=== PATIENT | female | born 2000 | race American Indian/Alaskan Native ===

== ENCOUNTER 2021-05-30 06:45 | Emergency (ER) | payer OTHER ==
--- NOTE | 2021-05-30 10:23 | Emergency Department Report ---
ED General Adult HPI - General Chief complaint: Weakness Stated complaint: LOSS OF APPETITE/WEAKNESS Time Seen by Provider: 05/30/21 10:21 Source: patient Mode of arrival: Wheelchair Limitations: No Limitations - History of Present Illness Initial comments: Patient is a 21-year-old female presents emergency room complaints of nausea, vomiting, diarrhea that began 2 days ago. She states that she did have a positive Covid contact but has not yet been tested in the last few days since becoming sick. She has not been vaccinated for COVID-19. She denies any fever, cough, shortness of breath, chest pain, abdominal pain. She states that she is also currently on her menstrual cycle. Patient has a past medical history of anxiety and depression but denies any SI or HI. she states that she is currently on her menstrual cycle. - Related Data Previous Rx's Medication Instructions Recorded Last Taken Type Hyoscyamine Subl [Levsin Sl 0.125 0.125 mg SL Q6HR PRN #10 tab 05/30/21 Unknown Rx TAB] Ondansetron [Zofran Odt] 4 mg PO Q8HR PRN #10 tab.rapdis 05/30/21 Unknown Rx cephALEXin [Keflex] 500 mg PO BID 7 Days #14 capsule 05/30/21 Unknown Rx Allergies Allergy/AdvReac Type Severity Reaction Status Date / Time No Known Allergies Allergy Unverified 05/30/21 12:39 ED Review of Systems ROS: Stated complaint: LOSS OF APPETITE/WEAKNESS Other details as noted in HPI Comment: All other systems reviewed and negative ED Past Medical Hx - Past Medical History Previous Medical History?: Yes Hx Psychiatric Treatment: Yes (depression) - Surgical History Past Surgical History?: No Additional Surgical History: denies - Social History Smoking Status: Never Smoker Substance Use Type: None - Medications Home Medications: Home Medications Medication Instructions Recorded Confirmed Last Taken Type Hyoscyamine Subl [Levsin Sl 0.125 0.125 mg SL Q6HR PRN #10 tab 05/30/21 Unknown Rx TAB] Ondansetron [Zofran Odt] 4 mg PO Q8HR PRN #10 tab.rapdis 05/30/21 Unknown Rx cephALEXin [Keflex] 500 mg PO BID 7 Days #14 capsule 05/30/21 Unknown Rx ED Physical Exam - General Limitations: No Limitations General appearance: alert, in no apparent distress - Head Head exam: Present: atraumatic, normocephalic - Eye Eye exam: Present: normal appearance - ENT ENT exam: Present: mucous membranes moist - Respiratory Respiratory exam: Present: normal lung sounds bilaterally. Absent: respiratory distress, wheezes, rales, rhonchi, stridor, chest wall tenderness, accessory mus fifi use, decreased breath sounds, prolonged expiratory - Cardiovascular Cardiovascular Exam: Present: regular rate, normal rhythm, normal heart sounds. Absent: systolic murmur, diastolic murmur, rubs, gallop - GI/Abdominal GI/Abdominal exam: Present: soft, normal bowel sounds. Absent: distended, tenderness, guarding, rebound, rigid - Neurological Exam Neurological exam: Present: alert, oriented X3 - Psychiatric Psychiatric exam: Present: normal affect, normal mood - Skin Skin exam: Present: warm, dry, intact ED Course Vital Signs 05/30/21 14:35 Temperature 98.9 F Pulse Rate 87 Respiratory 16 Rate Blood Pressure 111/74 [Left] O2 Sat by Pulse 98 Oximetry ED Medical Decision Making - Lab Data Result diagrams: 05/30/21 11:47 05/30/21 11:47 Lab Results 05/30/21 05/30/21 05/30/21 Range/Units 08:18 11:47 11:47 WBC 4.9 (4.5-11.0) K/mm3 RBC 4.70 (3.65-5.03) M/mm3 Hgb 13.9 (10.1-14.3) gm/dl Hct 41.8 (30.3-42.9) % MCV 89 (79-97) fl MCH 30 (28-32) pg MCHC 33 (30-34) % RDW 12.7 L (13.2-15.2) % Plt Count 254 (140-440) K/mm3 Lymph % (Auto) 30.0 (13.4-35.0) % Sab[place] % (Auto) 6.9 (0.0-7.3) % Eos % (Auto) 0.1 (0.0-4.3) % Baso % (Auto) 0.3 (0.0-1.8) % Lymph # (Auto) 1.5 (1.2-5.4) K/mm3 Sabine # (Auto) 0.3 (0.0-0.8) K/mm3 Eos # (Auto) 0.0 (0.0-0.4) K/mm3 Baso # (Auto) 0.0 (0.0-0.1) K/mm3 Seg Neutrophils % 62.7 (40.0-70.0) % Seg Neutrophils # 3.1 (1.8-7.7) K/mm3 Sodium 138 (137-145) mmol/L Potassium 3.9 (3.6-5.0) mmol/L Chloride 105.3 (98-107) mmol/L Carbon Dioxide 20 L (22-30) mmol/L Anion Gap 17 mmol/L BUN 8 (7-17) mg/dL Creatinine 0.5 L (0.6-1.2) mg/dL Estimated GFR > 60 ml/min BUN/Creatinine Ratio 16 % Glucose 103 H (65-100) mg/dL POC Glucose 90 (70-105) mg/dL Calcium 9.9 (8.4-10.2) mg/dL Total Bilirubin 0.40 (0.1-1.2) mg/dL AST 18 (5-40) units/L ALT 15 (7-56) units/L Alkaline Phosphatase 43 (35-129) units/L Total Protein 8.0 (6.3-8.2) g/dL Albumin 4.6 (3.9-5) g/dL Albumin/Globulin Ratio 1.4 % Lipase 21 (13-60) units/L HCG, Qual (Negative) Urine Color (Yellow) Urine Turbidity (Clear) Urine pH Ur Specific [place] (1.003-1.030) Urine Protein (Negative) mg/dL Urine Glucose (UA) (Negative) mg/dL Urine Ketones (Negative) mg/dL Urine Blood (Negative) Urine Nitrite (Negative) Urine Bilirubin (Negative) Urine Urobilinogen Ur Leukocyte Esterase (Negative) Urine WBC (Auto) (0.0-6.0) /HPF Urine RBC (Auto) (0.0-6.0) /HPF U Epithel Cells (Auto) (0-13.0) /HPF Urine Mucus /HPF 05/30/21 05/30/21 Range/Units 11:47 Unknown WBC (4.5-11.0) K/mm3 RBC (3.65-5.03) M/mm3 Hgb (10.1-14.3) gm/dl Hct (30.3-42.9) % MCV (79-97) fl MCH (28-32) pg MCHC (30-34) % RDW (13.2-15.2) % Plt Count (140-440) K/mm3 Lymph % (Auto) (13.4-35.0) % Sabine % (Auto) (0.0-7.3) % Eos % (Auto) (0.0-4.3) % Baso % (Auto) (0.0-1.8) % Lymph # (Auto) (1.2-5.4) K/mm3 Sabine # (Auto) (0.0-0.8) K/mm3 Eos # (Auto) (0.0-0.4) K/mm3 Baso # (Auto) (0.0-0.1) K/mm3 Seg Neutrophils % (40.0-70.0) % Seg Neutrophils # (1.8-7.7) K/mm3 Sodium (137-145) mmol/L Potassium (3.6-5.0) mmol/L Chloride (98-107) mmol/L Carbon Dioxide (22-30) mmol/L Anion Gap mmol/L BUN (7-17) mg/dL Creatinine (0.6-1.2) mg/dL Estimated GFR ml/min BUN/Creatinine Ratio % Glucose (65-100) mg/dL POC Glucose (70-105) mg/dL Calcium (8.4-10.2) mg/dL Total Bilirubin (0.1-1.2) mg/dL AST (5-40) units/L ALT (7-56) units/L Alkaline Phosphatase (35-129) units/L Total Protein (6.3-8.2) g/dL Albumin (3.9-5) g/dL Albumin/Globulin Ratio % Lipase (13-60) units/L HCG, Qual Negative (Negative) Urine Color Red (Yellow) Urine Turbidity Turbid (Clear) Urine pH TNR Ur Specific [place] 1.035 H (1.003-1.030) Urine Protein Color interference (Negative) mg/dL Urine Glucose (UA) Color interference (Negative) mg/dL Urine Ketones Color interference (Negative) mg/dL Urine Blood Color interference (Negative) Urine Nitrite Color interference (Negative) Urine Bilirubin Color interference (Negative) Urine Urobilinogen TNR Ur Leukocyte Esterase Color interference (Negative) Urine WBC (Auto) 129.0 H (0.0-6.0) /HPF Urine RBC (Auto) > 182.0 (0.0-6.0) /HPF U Epithel Cells (Auto) 9.0 (0-13.0) /HPF Urine Mucus 3+ /HPF - Medical Decision Making Patient is a 21-year-old female presents emergency room complaints of nausea, vomiting, diarrhea that began 2 days ago. She states that she did have a positive Covid contact but has not yet been tested in the last few days since becoming sick. She has not been vaccinated for COVID-19. She denies any fever, cough, shortness of breath, chest pain, abdominal pain. She states that she is also currently on her menstrual cycle. Patient has a past medical history of anxiety and depression but denies any SI or HI. she states that she is currently on her menstrual cycle. Vitals are normal. No abnormality on physical examination as documented in chart. Labs are stable. UA shows evidence of red blood cells and white blood cells, could be due to UTI versus contamination from blood due to her menstrual cycle. Will cover patient with Keflex. Patient given medications while in the emergency department and symptoms improved and she was feeling much better and ready to go home. She was able to tolerate p.o. intake with no difficulty. Advised patient Take medication as prescribed. Increase your fluid intake. Eat a bland liquid diet and slowly advance diet as tolerated. Follow-up with your primary care doctor. Return to emergency room for any new or worsening symptoms. Recommend for you to get outpatient COVID-19 testing and if positive self quarantine for 10 days from onset of symptoms. Critical care attestation.: If time is entered above; I have spent that time in minutes in the direct care of this critically ill patient, excluding procedure time. ED Disposition Clinical Impression: Nausea vomiting and diarrhea UTI (urinary tract infection) Qualifiers: Urinary tract infection type: acute cystitis Hematuria presence: without hematuria Qualified Code(s): N30.00 - Acute cystitis without hematuria Disposition: HOME / SELF CARE / HOMELESS Is pt being admited?: No Does the pt Need Aspirin: No Condition: Stable Instructions: Viral Gastroenteritis, Adult, Urinary Tract Infection, Adult Additional Instructions: Take medication as prescribed. Increase your fluid intake. Eat a bland liquid diet and slowly advance diet as tolerated. Follow-up with your primary care doctor. Return to emergency room for any new or worsening symptoms. Recommend for you to get outpatient COVID-19 testing and if positive self quarantine for 10 days from onset of symptoms. Prescriptions: cephALEXin [Keflex] 500 mg PO BID 7 Days #14 capsule Hyoscyamine Subl [Levsin Sl 0.125 TAB] 0.125 mg SL Q6HR PRN #10 tab PRN Reason: diarrhea Ondansetron [Zofran Odt] 4 mg PO Q8HR PRN #10 tab.rapdis PRN Reason: vomiting Referrals: PRIMARY CARE, [Primary Care Provider] - 2-3 Days Time of Disposition: 14:02 Print Language: HEBREW
[2021-05-30 12:01] LABS: Bilirubin,Urine Color Interference (Negative); Color,Urine Red (Yellow)
[2021-05-30 12:02] LABS: Blood,Urine Color Interference (Negative); PH,Urine TNR (5.0-7.0); Protein,Urine Color Interference mg/dL (Negative); Urobilinogen,Urine TNR mg/dL (<2.0)
[2021-05-30 12:03] LABS: Mucus,Urine 3+ /HPF
[2021-05-30 12:05] LABS: RBC,Urine > 182.0 /HPF (0.0-6.0)
[2021-05-30 12:34] LABS: Alanine Aminotransferase 15 units/L (7-56); Albumin 4.6 g/dL (3.9-5); Basophils % (Auto) 0.3 % (0.0-1.8); Blood Urea Nitrogen 8 mg/dL (7-17); Calcium 9.9 mg/dL (8.4-10.2); Eosinophils % (Auto) 0.1 % (0.0-4.3); Hematocrit 41.8 % (30.3-42.9); Hemoglobin 13.9 gm/dl (10.1-14.3); Hemolysis Index 3; Lymphocytes # (Auto) 1.5 K/mm3 (1.2-5.4); Mean Corpuscular HGB Conc 33 % (30-34); Mean Corpuscular Volume 89 fl (79-97); Monocytes # (Auto) 0.3 K/mm3 (0.0-0.8); Monocytes % (Auto) 6.9 % (0.0-7.3); Platelet Count 254 K/mm3 (140-440); Red Cell Distribution Width 12.7 % (13.2-15.2)
[2021-05-30 12:51] LABS: BUN/Creatinine Ratio 16
[2021-05-30] MEDS ORDERED: HYOSCYAMINE SUBL 0.125 MG TAB SL ONE (13:00)
[2021-05-30] MEDS ORDERED: ONDANSETRON 4 MG ODT TAB PO ONE (13:00)
[2021-05-30 14:36] VITALS: BP 111/74
== END 2021-05-30 14:36 | disposition home or self-care (01) ==
LOC: ED 06:45
DX: N39.0 Urinary tract infection, site not specified (principal); R11.2 Nausea with vomiting, unspecified; R19.7 Diarrhea, unspecified; F32.9 Major depressive disorder, single episode, unspecified
CPT/HCPCS: 36415; 80053; 81001; 82962; 83690; 84703; 85025; 87086; 99284; Q0162

== ENCOUNTER 2021-05-31 07:37 | Emergency (ER) | payer OTHER ==
[2021-05-31] MEDS ORDERED: SODIUM CHLORIDE 0.9% 1000 ML 1,000 ML IV ONE (08:11)
[2021-05-31] MEDS ORDERED: ONDANSETRON 4 MG/2 ML INJ IV ONE (08:11)
--- NOTE | 2021-05-31 08:19 | Emergency Department Report ---
ED Psych HPI - General Chief Complaint: Overdose Stated Complaint: SI Time Seen by Provider: 05/31/21 08:08 Source: patient Mode of arrival: Ambulatory - History of Present Illness Initial Comments: CC: "I am having a mental health crisis." HPI: This is a 21-year-old female with history of anxiety and depression who presents after suicide attempt. Patient intentionally ingested 700mg sertraline. She immediately called 911 after the ingestion. She stated that she did not want her son to find her body. She had a previous suicide attempt as a teenager. She has had multiple social stressors including strained relationship with the father of her child. 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 They had previously lived together for several years. Patient states that mothering during quarantine has been has been difficult. She is staying home with her child while being away from work. 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 Tearfully she explains, "no one is going to take care of me to except for me I am not doing a good job of it." She spoke with her mother today. She does not have a good relationship with her mother. Recently she has had nausea vomiting diarrhea since Saturday. She is evaluated in emergency department yesterday for the symptoms. She has had contact with known COVID-19 infected persons. She is not vaccinated against COVID-19. Complaint: suicidal ideation, feels depressed, other (Intentional drug overdose) -: This morning Associated Psychiatric Symptoms: depression, suicidal ideation History of same: Yes Quality: constant Improves With: none Worsens With: none Context: significant life stressor Associated Symptoms: vomiting, other If Self Harm: intentional overdose - Related Data Previous Rx's Medication Instructions Recorded Last Taken Type Hyoscyamine Subl [Levsin Sl 0.125 0.125 mg SL Q6HR PRN #10 tab 05/30/21 Unknown Rx TAB] Ondansetron [Zofran Odt] 4 mg PO Q8HR PRN #10 tab.rapdis 05/30/21 Unknown Rx cephALEXin [Keflex] 500 mg PO BID 7 Days #14 capsule 05/30/21 Unknown Rx Allergies Allergy/AdvReac Type Severity Reaction Status Date / Time No Known Allergies Allergy Unverified 05/30/21 12:39 ED Review of Systems ROS: Stated complaint: SI Other details as noted in HPI Comment: All other systems reviewed and negative Constitutional: denies: fever, malaise Respiratory: denies: cough, shortness of breath Gastrointestinal: nausea, vomiting, diarrhea Musculoskeletal: denies: back pain Psychiatric: depression, suicidal thoughts ED Past Medical Hx - Past Medical History Previous Medical History?: Yes Hx Psychiatric Treatment: Yes (depression, anxiety) - Surgical History Past Surgical History?: No Additional Surgical History: denies - Social History Smoking Status: Never Smoker Substance Use Type: None - Medications Home Medications: Home Medications Medication Instructions Recorded Confirmed Last Taken Type Hyoscyamine Subl [Levsin Sl 0.125 0.125 mg SL Q6HR PRN #10 tab 05/30/21 Unknown Rx TAB] Ondansetron [Zofran Odt] 4 mg PO Q8HR PRN #10 tab.rapdis 05/30/21 Unknown Rx cephALEXin [Keflex] 500 mg PO BID 7 Days #14 capsule 05/30/21 Unknown Rx ED Physical Exam - General Limitations: No Limitations General appearance: alert, in no apparent distress, other (Tearful obviously upset poor eye contact cooperative fairly insightful) - Head Head exam: Present: atraumatic, normocephalic - Eye Eye exam: Present: normal appearance - ENT ENT exam: Present: mucous membranes moist - Neck Neck exam: Present: normal inspection - Respiratory Respiratory exam: Present: normal lung sounds bilaterally. Absent: respiratory distress - Cardiovascular Cardiovascular Exam: Present: regular rate, normal rhythm. Absent: systolic murmur, diastolic murmur, rubs, gallop - GI/Abdominal GI/Abdominal exam: Present: soft, normal bowel sounds. Absent: distended, tenderness - Extremities Exam Extremities exam: Present: normal inspection - Back Exam Back exam: Present: normal inspection - Neurological Exam Neurological exam: Present: alert, oriented X3 - Psychiatric Psychiatric exam: Present: normal affect, depressed - Skin Skin exam: Present: warm, dry, intact, normal color. Absent: rash ED Course Vital Signs 05/31/21 05/31/21 05/31/21 07:55 14:56 16:40 Temperature 98 F Pulse Rate 111 H 77 82 Respiratory 16 16 16 Rate Blood Pressure 129/84 Blood Pressure 109/56 98/40 [Right] O2 Sat by Pulse 100 97 98 Oximetry 05/31/21 05/31/21 05/31/21 16:41 17:27 19:23 Temperature 97.8 F 98.1 F Pulse Rate 67 84 Respiratory 20 18 Rate Blood Pressure Blood Pressure 110/55 107/52 [Right] O2 Sat by Pulse 98 98 98 Oximetry - Reevaluation(s) Reevaluation #1: 05/31/21 13:40 Patient observed for 6 hours on monitor. No major adverse cardiac events. No indication of cardiovascular stability. Patient is medically clear for psychiatric care. ED Medical Decision Making - Lab Data Result diagrams: 05/31/21 08:30 05/31/21 08:30 - Medical Decision Making 1. Intentional overdose of 700 mg of sertraline: I consulted [place] poison control center specialist. According to discussion with [facility] toxicology specialist, this is a nonlethal ingestion. Lethal effects are seen at 40 mg/kg which is markedly above patient's small ingested amount. Peak effect is expected between 6 to 8 hours. Will observe for seizure activity which is not likely at this amount of ingestion. GI distress vomiting diarrhea is to be expected.1013 form completed. ED hold order in place. I examined the bottle of sertraline which accompanied the patient. Quantity on the label 90 tablets. The majority of the tablets are contained in the pill bottle. Pill bottle containing sertraline is mostly full. 2. vomiting diarrhea since Saturday: COVID-19 test ordered, influenza, food poisoning other consideration, test negative, patient received symptomatic treatment with IV fluid therapy IV Zofran After appropriate observation 6 hours on cardiac nurse specialist, patient is medically clear for psychiatric care [facility] Critical Care Time: Yes Critical care time in (mins) excluding proc time.: 40 Critical care attestation.: If time is entered above; I have spent that time in minutes in the direct care of this critically ill patient, excluding procedure time. 40 minutes of critical care time excluding procedures were used in the care of the patient. Jenny alongside steam turbine assembler while obtaining EMS report over the radio. I came immediately to the bedside upon patient's arrival. I obtained history from EMS at the bedside. I discussed treatment plan with the nursing team members. I reviewed electronic record. I spoke with toxicology compliance consultant. Patient required multiple interventions and reassessments. I was concerned for impending cardiovascular collapse. Was concerned that patient may have ingested other potentially lethal medications. ED Disposition Clinical Impression: Intentional overdose of drug in tablet form, Suicide attempt, Acute depression Disposition: [address] [place] [address] Is pt being admited?: No Does the pt Need Aspirin: No Condition: Stable Referrals: PRIMARY CARE, [Primary Care Provider] - 3-5 Days
[2021-05-31 09:07] LABS: Basophils % (Auto) 0.3 % (0.0-1.8); Hematocrit 41.1 % (30.3-42.9); Hemoglobin 13.7 gm/dl (10.1-14.3); Lymphocytes # (Auto) 0.8 K/mm3 (1.2-5.4); Lymphocytes % (Auto) 18.6 % (13.4-35.0); Mean Corpuscular HGB Conc 33 % (30-34); Mean Corpuscular Volume 89 fl (79-97); Monocytes # (Auto) 0.2 K/mm3 (0.0-0.8); Monocytes % (Auto) 5.8 % (0.0-7.3); Platelet Count 274 K/mm3 (140-440); Red Blood Count 4.62 M/mm3 (3.65-5.03)
[2021-05-31 09:30] LABS: Alanine Aminotransferase 17 units/L (7-56); Albumin 4.7 g/dL (3.9-5); Blood Urea Nitrogen 10 mg/dL (7-17); Calcium 9.9 mg/dL (8.4-10.2); Hemolysis Index 4
[2021-05-31 09:38] LABS: BUN/Creatinine Ratio 20
[2021-05-31] MEDS ORDERED: DEXTROSE 50% IN WATER (25GM) 50 ML SYRINGE IV ONE (10:37)
--- NOTE | 2021-05-31 10:49 | Consultation ---
History of Present Illness - Reason for Consult Consult date: 05/31/21 Reason for consult: Suicidal attempt - History of Present Psychiatric Illness Per ER Note: HPI: This is a 21-year-old female with history of anxiety and depression who presents after suicide attempt. Patient intentionally ingested 700mg sertraline. She immediately called 911 after the ingestion. She stated that she did not want her son to find her body. She had a previous suicide attempt as a teenager. She has had multiple social stressors including strained relationship with the father of her child. 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 They had previously lived together for several years. Patient states that mothering during quarantine has been has been difficult. She is staying home with her child while being away from work. 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 Tearfully she explains, "no one is going to take care of me to except for me I am not doing a good job of it." She spoke with her mother today. She does not have a good relationship with her mother. Orlando Mary is a 21y/o female patient who presented to the ER after taking several Zoloft tablets in an attempt to commit suicide. During my evaluation of the patient, she is tearful. She says nobody was listening to her so "it escalated to this." She says "I didn't think there was no other way." The patent is a/o x 3. She is calm, cooperative and polite. She says she has been having trouble eating. She talks about the strained relationship she has with her son's father. She says they are not together but he is manipulative and makes her feel like she's a bad mother. She says she's afraid that he might try and take her child and she would rather be than to lose her son. She says her child's father is friends with judges and police officers and she feels he has the upper hand. She says "please don't think he's abuse or anything like that. He doesn't hit me or anything. It's just that he always makes me feel that I'm not good at being a mom." She denies hallucinations of any kind. The patient says she has a history of depression. She denies any illicit drug use, alcohol or nicotine. The patient says she doesn't know her father that well, and states her mom is an alcohol and they don't have a good relationship. PAST PSYCHIATRIC HISTORY: Diagnoses: Depression Suicide attempts or Self-harm behavior: yes Prior psychiatric hospitalizations: Denies Substance Abuse history: Denies Previous psychiatric medications tried: zoloft Outpatient treatment: yes PAST MEDICAL HISTORY: None reported or document Family Psychiatric History: None reported or documented SOCIAL HISTORY Marital Status: single Living Arrangements: Lives with son Employment Status: employed Access to guns/weapons: Denies Education: History of Abuse: denies Legal History: Denies REVIEW OF SYSTEMS Constitutional: Negative for weight loss ENT: Negative for stridor Respiratory: Negative for cough or hemoptysis All other systems reviewed and are negative MENTAL STATUS EXAMINATION General Appearance and Behavior: Age appropriate, good hygiene, wearing appropriate clothes. Cooperation: Cooperative Psychomotor Behavior: Psychomotor normal Mood: depressed Affect and affective range: congruent with stated mood, tearful Thought Process: goal oriented Thought Content: SI, hopelessness Speech: Normal volume, Regular rate and rhythm, Suicidal Ideation: Yes Homicidal Ideation: Denies Hallucinations: Denies Delusions: None elicited Impulse Control:Limited Insight and Judgment: Limited Memory: Limited Attention: attentive Orientation: alert and oriented Assessment and Plan (1) Major Depressive Disorder Current Visit: Yes Status: Acute Treatment Plan 1013 Will hold off on antidepressant for now Sitter: Defer to primary Medical: Per primary Disposition: Recommend acute psychiatric inpatient Will follow. Thanks Case staffed with Dr. Tony Medications and Allergies Allergies Allergy/AdvReac Type Severity Reaction Status Date / Time No Known Allergies Allergy Unverified 05/30/21 12:39 Home Medications Medication Instructions Recorded Confirmed Last Taken Type Hyoscyamine Subl [Levsin Sl 0.125 0.125 mg SL Q6HR PRN #10 tab 05/30/21 Unknown Rx TAB] Ondansetron [Zofran Odt] 4 mg PO Q8HR PRN #10 tab.rapdis 05/30/21 Unknown Rx cephALEXin [Keflex] 500 mg PO BID 7 Days #14 capsule 05/30/21 Unknown Rx Mental Status Exam - Vital signs Last Vital Signs Temp 98 F 05/31/21 07:55 Pulse 111 H 05/31/21 07:55 Resp 16 05/31/21 07:55 BP 129/84 05/31/21 07:55 Pulse Ox 100 05/31/21 07:55 Results Result Diagrams: 05/31/21 08:30 05/31/21 08:30 Abnormal lab results 05/31/21 05/31/21 05/31/21 Range/Units 08:30 08:30 08:30 WBC 4.3 L (4.5-11.0) K/mm3 RDW 13.0 L (13.2-15.2) % Lymph # (Auto) 0.8 L (1.2-5.4) K/mm3 Seg Neutrophils % 75.3 H (40.0-70.0) % Creatinine (0.6-1.2) mg/dL Total Protein (6.3-8.2) g/dL Salicylates < 0.3 L (2.8-20.0) mg/dL Acetaminophen 5.0 L (10.0-30.0) ug/mL 05/31/21 Range/Units 08:30 WBC (4.5-11.0) K/mm3 RDW (13.2-15.2) % Lymph # (Auto) (1.2-5.4) K/mm3 Seg Neutrophils % (40.0-70.0) % Creatinine 0.5 L (0.6-1.2) mg/dL Total Protein 8.3 H (6.3-8.2) g/dL Salicylates (2.8-20.0) mg/dL Acetaminophen (10.0-30.0) ug/mL All other labs normal.
[2021-05-31] MEDS ORDERED: SODIUM CHLORIDE 0.9% 1000 ML 1,000 ML ONE (11:12)
[2021-05-31] MEDS ORDERED: ONDANSETRON 4 MG/2 ML INJ ONE (11:12)
[2021-05-31 15:05] LABS: Amphetamine Screen,Urine PRESUMPTIVE NEGATIVE; Benzodiazepines Screen,Urine PRESUMPTIVE NEGATIVE; Cannabinoid Screen,Urine PRESUMPTIVE POSITIVE; Cocaine Screen,Urine PRESUMPTIVE NEGATIVE; Methadone Screen,Urine PRESUMPTIVE NEGATIVE; Opiate Screen,Urine PRESUMPTIVE NEGATIVE
[2021-05-31 16:04] LABS: Color,Urine Yellow (Yellow)
[2021-05-31 16:05] LABS: Bilirubin,Urine NEG (Negative); Blood,Urine SM (Negative); Mucus,Urine 3+ /HPF; Urobilinogen,Urine < 2.0 mg/dL (<2.0)
[2021-05-31 19:24] VITALS: BP 107/52
== END 2021-05-31 19:50 ==
LOC: EEVIPCON 07:37 → ED 07:37
DX: T43.221A Poisoning by selective serotonin reuptake inhibitors, accidental (unintentional), initial encounter (principal); T14.91XA Suicide attempt, initial encounter; F32.9 Major depressive disorder, single episode, unspecified; F41.8 Other specified anxiety disorders; Y92.89 Other specified places as the place of occurrence of the external cause
CPT/HCPCS: 36415; 80053; 80307; 81001; 84703; 85025; 96361; 96374; 99291; J2405; J7030; 80320; 99284; G0480